=== PATIENT | female | born 1995 | race African-American/Black ===

== ENCOUNTER 2019-07-23 19:35 | Emergency (ER) | payer MEDICAID ==
[~2019-07-23] VITALS: Ht 162.6 cm; Wt 80.0 kg
[2019-07-23 19:38] VITALS: BP 129/90
[2019-07-23] MEDS ORDERED: DEXAMETHASONE 4 MG TABLET PO STA (20:46)
[2019-07-23] MEDS ORDERED: DEXAMETHASONE 4 MG TABLET ONE (20:52)
[2019-07-23 21:11] LABS: RAPID INFLUENZA A Negative (Negative); RAPID INFLUENZA B Negative (Negative)
--- NOTE | 2019-07-23 22:03 | NUR ---
CARE ASSUMED FOR DC. PT DC'D HOME WITH RX X 1 AND UNDERSTANDING OF INSTRUCTIONS. PT TO DC DESK WITH FAMILY, GAIT STEADY.
== END 2019-07-23 22:06 | disposition home or self-care (01) ==
LOC: ED 21:50
DX: J20.8 Acute bronchitis due to other specified organisms (principal); B97.89 Other viral agents as the cause of diseases classified elsewhere; E11.9 Type 2 diabetes mellitus without complications
CPT/HCPCS: 71046; 87400; 99284

== ENCOUNTER 2019-09-12 12:18 | Emergency (ER) | payer MEDICAID ==
[~2019-09-12] VITALS: Ht 162.6 cm; Wt 81.6 kg
[2019-09-12 12:28] VITALS: BP 126/86
[2019-09-12 12:53] LABS: BASOPHILS # (AUTO) 0.04 x10^3/uL (0-0.1); BASOPHILS % (AUTO) 0 % (0-1); EOSINOPHILS # (AUTO) 0.15 x10^3/uL (0-0.4); EOSINOPHILS % (AUTO) 2 % (1-7); LYMPHOCYTES # (AUTO) 2.38 x10^3/uL (1-3.4); LYMPHOCYTES % (AUTO) 23 % (22-44); MD NO; MEAN CORPUSCULAR HGB CONC 32.5 g/dL (32.4-35.8); MEAN CORPUSCULAR VOLUME 83.3 fL (80-100); MEAN PLATELET VOLUME 11.1 fL (7.4-10.4); MONOCYTES # (AUTO) 0.72 x10^3/uL (0.2-0.8); MONOCYTES % (AUTO) 7 % (2-9); NEUTROPHILS # (AUTO) 7.07 x10^3/uL (1.8-6.8); NEUTROPHILS % (AUTO) 68 % (42-75); PLATELET COUNT 269 x10^3/uL (130-400); RED BLOOD COUNT 5.26 x10^6/uL (3.82-5.3); RED CELL DISTRIBUTION WIDTH 13.4 % (9.6-15.2)
[2019-09-12 12:53] LABS: MICROSCOPIC NOT IND
[2019-09-12 13:07] LABS: CULTURE INDICATED? NO
--- NOTE | 2019-09-12 13:07 | NUR ---
LEARNING ENGINEER: CALLED PATIENT BACK. PT IN ULTRASOUND
[2019-09-12 13:09] LABS: ALBUMIN 3.8 g/dL (3.4-5.0); ANION GAP 7 mmol/L (5-15); CALCIUM 8.8 mg/dL (8.5-10.1); CHLORIDE 102 mmol/L (98-107)
[2019-09-12 13:29] LABS: ALANINE AMINOTRANSFERASE 17 U/L (12-78); ALKALINE PHOSPHATASE 113 U/L (45-117); BILIRUBIN,TOTAL 0.6 mg/dL (0.2-1.0); CREATININE 0.71 mg/dL (0.55-1.02); TOTAL PROTEIN 7.9 g/dL (6.4-8.2)
[2019-09-12 14:36] LABS: MICROSCOPIC NOT IND
[2019-09-12 14:53] LABS: CULTURE INDICATED? NO
== END 2019-09-12 14:33 | disposition home or self-care (01) ==
LOC: ED 14:28
DX: O20.0 Threatened abortion (principal); O24.111 Pre-existing type 2 diabetes mellitus, in pregnancy, first trimester; E11.65 Type 2 diabetes mellitus with hyperglycemia; Z72.9 Problem related to lifestyle, unspecified; Z3A.01 Less than 8 weeks gestation of pregnancy
CPT/HCPCS: 36415; 76801; 80053; 81003; 84702; 85025; 86901; 99284